=== PATIENT | male | born 1945 | race Caucasian/White ===

== ENCOUNTER → 2018-03-31 | Outpatient (CLI) | payer OTHER ==
--- NOTE | 2018-03-31 15:16 | DIAGNOSTIC IMAGING REPORT ---
MRI LEFT KNEE NO CONTRAST CLINICAL HISTORY: Left knee pain COMPARISON STUDY: Conventional radiographic study dated 09/25/2017 FINDINGS: Imaging was performed in the sagittal, coronal, and axial planes. There are no areas of marrow edema to indicate occult fracture. There is a 4 mm focus of subchondral marrow edema involving the lateral femoral condyle. The quadriceps and patellar tendons appear intact. The anterior and posterior cruciate ligaments appear intact. The medial and lateral collateral ligaments appear intact. No tears a lateral meniscus are visualized. There is a horizontal tear involving the posterior horn the medial meniscus. There is chondromalacia patella. IMPRESSION: 1. Tear involving the posterior horn the medial meniscus 2. Chondromalacia patella Electronically signed by: Wilton Merritt M.D. 03/31/2018 3:15 PM Dictated Date/Time: 03/31/2018 3:10 PM
== END | disposition home or self-care (01) ==
LOC: C.MRIBC 14:27
PROVIDERS: ATTEND Orthopaedic Surgery
DX: S83.232A Complex tear of medial meniscus, current injury, left knee, initial encounter (principal); X58.XXXA Exposure to other specified factors, initial encounter; M22.42 Chondromalacia patellae, left knee